=== PATIENT | female | born 1980 | race African-American/Black ===

== ENCOUNTER 2019-01-16 20:50 | Emergency (ER) | payer BC ==
[~2019-01-16] VITALS: Ht 165.1 cm; Wt 81.6 kg
[2019-01-16 21:06] VITALS: Ht 165.1 cm; Wt 81.6 kg
[2019-01-16 22:09] LABS: BASOPHIL % 0.1 % (0-2); PLATELET COUNT 211 x10^3mcL (130-400); RED CELL DISTRIBUTION WIDTH 13.1 % (11.5-14.5)
[2019-01-16 22:25] LABS: ALBUMIN 4.4 g/dL (3.4-5.0); ALKALINE PHOSPHATASE 101 U/L (46-116); ALT/SGPT 43 U/L (14-59); AST/SGOT 15 U/L (15-37); BILIRUBIN TOTAL 0.76 mg/dL (0.20-1.00); CALCIUM 10.1 mg/dL (8.5-10.1); CARBON DIOXIDE 19.6 mmol/L (21-32); CHLORIDE SERUM 95 mmol/L (98-107); GFR1 > 60 mL/min; LIPASE 166 IU/L (73-393); POTASSIUM SERUM 4.3 mmol/L (3.5-5.1); SODIUM SERUM 135 mmol/L (136-145); TOTAL PROTEIN, SERUM 9.1 g/dL (6.4-8.2)
[2019-01-16 22:27] LABS: GLUCOSE SERUM 472 mg/dL (74-106)
[2019-01-17 03:43] VITALS: BP 166/109
== END 2019-01-17 03:43 | disposition home or self-care (01) ==
LOC: ED 20:50
PROVIDERS: Emergency Medicine
DX: G43.A0 Cyclical vomiting, in migraine, not intractable (principal); E11.65 Type 2 diabetes mellitus with hyperglycemia; Z88.8 Allergy status to other drugs, medicaments and biological substances
CPT/HCPCS: 82962; J1815; J2060; J2270; J2405; J3010; J3490; J7030